=== PATIENT | female | born 1970 | race Caucasian/White ===

== ENCOUNTER 2020-11-16 15:03 | Outpatient (RCR) | payer OTHER, SELFPAY ==
--- NOTE | 2020-11-18 09:25 | HP.OTFCE_ITS ---
Floor (Occasional 1-33% of Day): 20# Floor (Frequent 34-66% of Day): 10# Floor (Constant 67-100% of Day): NA Floor PDL: Light Knee (Occasional 1-33% of Day): 20# Knee (Frequent 34-66% of Day): 10# Knee (Constant 67-100% of Day): NA Knee PDL: Light Waist (Occasional 1-33% of Day): 20# Waist (Frequent 34-66% of Day): 10# Waist (Constant 67-100% of Day): NA Waist PDL: Light Shoulder (Occasional 1-33% of Day): 20# Shoulder (Frequent 34-66% of Day): 10# Shoulder (Constant 67-100% of Day): NA Shoulder PDL: Light Overhead (Occasional 1-33% of Day): 10# Overhead (Frequent 34-66% of Day): NA Overhead (Constant 67-100% of Day): NA Overhead PDL: Sedentary Bending: Occasional Ability (1-33% of day) Comments: with use of external support Squatting: Occasional Ability (1-33% of day) Comments: with use of external support Kneeling: Occasional Ability (1-33% of day) Comments: low occasional ability with use of external support. Reaching out: Frequent Ability (34-66% of day) Reaching up: Frequent Ability (34-66% of day) Sitting: Frequent Ability (34-66% of day) Walking: Occasional Ability (1-33% of day) Standing: Occasional Ability (1-33% of day) Duration Sedentary Sedentary Light Light Light Medium Medium Medium Heavy Very Heavy Heavy Occasional (0-33% of day) Frequent (34-66% of day) Constant (67-100% of day) 10 # Negligible Negligible 15 # 8 # Negligible 20 # 10# Negli. 35 # 18 # 7 # 50 # 25 # 10 # 75 # 100 # >100 # 38 # 50 # >50 # 15 # 20 # >20 # Weight:: 70.307 kg Hand Dominance: right Medical History Including Restrictions: This 49 year old female was seen for FCE. States she was dx with MS 2010. states it took her about three years of strange symptoms prior to getting dx. pt states she gets infusion every 6 months for mtg of her MS. pt has been taking this medication for about two years. Pt states she does not exercise on a regular basis. 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 Diagnoses: spinal stenosis dx in 2003. CTS with right CTR x 2, left CTR x1. Trigeminal neuralgia dx early 1999. Migraine. Insomnia. MS. 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 sharp shooting pain. numbness left side comes and goes left side. falls. weakness Pain: Pt states she is currently at 4/10. pt does lean off of left side to decrease pain. pt does take hydrocodone, flexural. Work History: Pt states she worked for [employer] for 13 years. 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 pt states she had concerns with lifting young children. pt states lifting requirement was from 15#-50#. pt has concerns with lifting children safely due to increase tingling in left UE. 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 Behavioral: Pt was cooperative ADLS: Pt lives with in a split level home- pts states main bathroom, bedroom are on first floor setup- pts laundry room is in basement with about 12 stairs to get to basement. pt states she has a tub shower combo. pt states she is SANDEEP with ADls and IADLs. pt states spouse does cooking and she will do the dishes. pts states her is retired. does the yard work. pt states she will do light gardening. will do laundry but does take longer- pt drives IND. ROM: No limited ROM was noted with functional mobility. Strength: pt demonstrated with UB and LB MMT at 4+/5 grossly throughout. 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 right hand tested at 2.83 a Normal sensation. left hand tested at 2.83 a normal sensation Fine Motor: 9 hole peg test. right 19.46 seconds 50%. left 22.11 seconds 50% Balance: no loss of balanced noted during assessment Bending: pt demo the ability to bend forward 3/3 times, 10/10times with external support. pt was unable to bend forward rapidly. pt states she feels woozy and left arm is going numb as her left arm was the one she used for external support. pt can bend forward on an occasional ability with use of external support. Squatting: pt demo the ability to squat 3/3 times, 10/10 times and 10/10 times rapidly. pt did use external support during this activity. heart rate 88 spO2 94. pt has left foot numbness and pain in hamstrings with this task. Pt can squat on a occasional ability with use of external support. Kneeling: pt demo the ability to kneel 3/3times, and then 9/10 times with external support. pt unable to kneel then times rapidly pt can kneel on a low occasional ability with use of external support. heart rate 69. Spo2 96 Reaching out/up: pt demo the ability to reach up/out three times, ten times and ten times rapidly. pt can reach up/out on a frequent ability. Walking: pt ambulated 13 min with a antalgic reciprocal gait pattern. pt can ambulate on a occasional ability. heart rate after ambulation 130. Standing: pt demo the ability to stand for 4 min with wt shift. pt can stand on an occasional ability Sitting: pt demo the ability to sit for 45 min with no expressed or apparent discomfort. pt can sit on a frequent ability. Pt states if she does sit for longer periods of time her left leg will have a increase tingling/numbness. Climbing Stairs: pt demo the ability to ascend and descend ten steps with use of one handrail with good ability. Floor Lift: pt demo the ability to lift 20# maximally from this level with fair lifting mechanics Knee Lift: pt demo the ability to lift 20# maximally from this level with fair lifting mechanics Waist Lift: pt demo the ability to lift 20# maximally from this level with fair lifting mechanics Shoulder Lift: pt demo the ability to lift 20# maximally from this level with fair lifting mechanics Overhead Lift: pt demo the ability to lift 10# maximally from this level with fair lifting mechanics Carrying: pt demo the ability to carry 10# for 40 feet with fair ability. pt did lean wt agains body Comments: heart rate 90 following. pt c/o a dizzy like feeling. numbness in left foot and left arm with tasks.
--- NOTE | 2020-11-18 09:25 | HP.OTFCE.D ---
FCE D/C Summary - Discharge [facility] was seen for a one time visit for an FCE on 11/16/20 and is discharged.
== END 2020-11-19 19:00 | disposition home or self-care (01) ==
LOC: OT 15:03
PROVIDERS: PCP Family Medicine
DX: G35 Multiple sclerosis (principal)
CPT/HCPCS: 97750

== ENCOUNTER 2021-06-21 16:35 | Outpatient (CLI) | payer BC, SELFPAY ==
[2021-06-21 17:19] LABS: Amphetamine Urine VISTA NEGATIVE (<1000 ng/mL); Barbiturate Urine VISTA NEGATIVE (< 200 ng/mL); Benzodiazepine Urine VISTA NEGATIVE (< 200 ng/mL); Cocaine Urine VISTA NEGATIVE (< 300 ng/mL); Ecstacy Urine VISTA NEGATIVE (< 500 ng/mL); Methadone Urine VISTA NEGATIVE (< 300 ng/mL); PCP Urine VISTA NEGATIVE (< 25 ng/mL); THC Urine VISTA NEGATIVE (< 50 ng/mL); Vista UDS pH Range 5
== END 2021-06-21 23:59 | disposition home or self-care (01) ==
LOC: LAB 16:38
PROVIDERS: PCP Family Medicine; Referring Provider Anesthesiology Pain Medicine; Visit Provider Anesthesiology Pain Medicine
DX: F11.20 Opioid dependence, uncomplicated (principal)
CPT/HCPCS: 36415; 80307

== ENCOUNTER → 2021-09-15 | Outpatient (CLI) | payer BC, SELFPAY ==
[2021-09-15 12:22] LABS: Amphetamine Urine VISTA NEGATIVE (<1000 ng/mL); Barbiturate Urine VISTA NEGATIVE (< 200 ng/mL); Benzodiazepine Urine VISTA NEGATIVE (< 200 ng/mL); Cocaine Urine VISTA NEGATIVE (< 300 ng/mL); Ecstacy Urine VISTA NEGATIVE (< 500 ng/mL); Methadone Urine VISTA NEGATIVE (< 300 ng/mL); PCP Urine VISTA NEGATIVE (< 25 ng/mL); THC Urine VISTA NEGATIVE (< 50 ng/mL); Vista UDS pH Range 7
== END | disposition home or self-care (01) ==
LOC: LAB 11:27
PROVIDERS: PCP Family Medicine; Visit Provider Anesthesiology Pain Medicine
DX: F11.20 Opioid dependence, uncomplicated (principal)
CPT/HCPCS: 80307